=== PATIENT | female | born 1995 | race American Indian/Alaskan Native ===

== ENCOUNTER 2017-01-05 11:55 | Outpatient (CLI) | payer MEDICAID ==
[2017-01-05] MEDS ORDERED: LACTATED RINGERS 500 ML IV ONE (12:07)
[2017-01-05 12:18] VITALS: BP 109/59
[2017-01-05 12:33] LABS: Urine Drugs of Abuse Note Disclamer
--- NOTE | 2017-01-05 12:35 | Event Note ---
Date: 01/05/17 patient arrived to triage with c/o SROM and vaginal bleeding @ approx 11am today. Hx term vaginal delivery in 2011 without complications. She initially stated that she had no care and thought she was due in February because she first "felt " in June. After a series or questions, She reports having some care with Dr. Suzanne English and an u/s that gave her a due date of 02/28/17. She also reports having a mirena IUD that is still in place. No active leaking at this time, nitrazine equivocal, SVE with IBOW and no bleeding noted. wet prep collected. complete OB u/s in progress.
[2017-01-05 12:46] LABS: Bacteria,Urine 1+ /HPF (Negative); Bilirubin,Urine NEG (Negative); Blood,Urine MOD (Negative); Ketones,Urine 20 mg/dL (Negative); Leukocyte Esterase,Urine MOD (Negative); Mucus,Urine FEW /HPF; Nitrite,Urine NEG (Negative); Urobilinogen,Urine < 2.0 mg/dL (<2.0)
[2017-01-05] MEDS ORDERED: FLAGYL PO ONE (13:02)
--- NOTE | 2017-01-05 13:05 | Event Note ---
Date: 01/05/17 u/s JENNA 11cms, u/s gestational age 32+1 correlates with u/s from Dr. English's office. Wet prep + trich and BV. Will treat BV and Trich in house today. Dr. Clarke consulted and plan decided for d/c home and f/u with Dr. English on Saturday.
--- NOTE | 2017-01-05 14:22 | Ultrasound Report ---
FINAL REPORT EXAM: US OB \T\gt; = 14 WEEKS FETUS HISTORY: NO CARE TECHNIQUE: Ultrasound evaluation of the gravid uterus PRIORS: None. FINDINGS: There is a single viable intrauterine with documented cardiac activity. Multiple ultrasound measurements are made to determine a composite gestational age. There is no evidence of placenta previa or abruption. The maternal cervix is obscured. The quantity of visualized amniotic fluid appears grossly normal. No sonographic abnormality in the visualized portion of the anatomy. Heart rate: 166 beats per minute position: Cephalic Placental position: Left lateral, grade 1 Amniotic fluid index: 11.5cm Ultrasound estimated gestational age: 32 weeks 0 days Ultrasound estimated delivery date: 03/02/2017 IMPRESSION: Single viable intrauterine with the above parameters
== END 2017-01-05 14:40 | disposition home or self-care (01) ==
LOC: TRG 11:55
PROVIDERS: ATTEND Obstetrics & Gynecology
DX: O47.03 False labor before 37 completed weeks of gestation, third trimester (principal); Z3A.32 32 weeks gestation of pregnancy
CPT/HCPCS: 59025; 76805; 80307; 81001; 87210; J7120

== ENCOUNTER 2017-01-12 14:36 | Inpatient (IN) | payer MEDICAID ==
[2017-01-12] MEDS: PITOCin/NS 20 UNIT/1000ML DRIP 20 UNITS/1,000 ML BAG IV SCH ×2 (14:36→17:27)
--- NOTE | 2017-01-12 14:57 | Procedure Note ---
OB Delivery Note - Delivery Date of Delivery: 01/12/17 Surgeon: YESICA NGUYEN Estimated blood loss: 300cc - Vaginal Delivery presentation: vertex Delivery position: OA Intrapartum events: no care, precipitous labor- <3hr Delivery induction: none Delivery monitor: none Route of delivery: Delivery placenta: spontaneous Delivery cord: 3 umbilical vessels Episiotomy: none Delivery laceration: none Anesthesia: none Delivery comments: Precipitous delivery of term infant over intact perineum - A at 1 minute: 8 at 5 minutes: 9 Gender: Male (Del @ 14:26, weight is 5#10 or 2268 g)
--- NOTE | 2017-01-12 15:00 | History and Physical Report ---
History of Present Illness Date of examination: 01/12/17 Date of admission: 01/12/17 14:36 Chief complaint: precipitous delivery History of present illness: 21-year-old at unsure gestational age arrived in the hospital and subsequently delivered precipitously. Infant and mother are in stable condition at this time. Patient claims to have had no care but review of records shows a documentation by Dr. Clarke on 01/05/17 noted below: "patient arrived to triage with c/o SROM and vaginal bleeding @ approx 11am today. Hx term vaginal delivery in 2011 without complications. She initially stated that she had no care and thought she was due in February because she first "felt " in June. After a series or questions, She reports having some care with Dr. Suzanne English and an u/s that gave her a due date of 02/28/17. She also reports having a mirena IUD that is still in place. No active leaking at this time, nitrazine equivocal, SVE with IBOW and no bleeding noted. wet prep collected. complete OB u/s in progress" Ultrasound obtained 01/05/2017 gives an PORTER of 02/25/2017 and estimated gestational age of 32 weeks Based on an PORTER of 02/28/2017 her GA is 33+2 wks Past History Past Medical History: no pertinent history Past Surgical History: no surgical history [employer] History: denies: chlamydia, gonorrhea, hepatitis B, hepatitis C, herpes, HIV , syphilis, trichomonas Social history: single, full code. denies: smoking, alcohol abuse, prescription drug abuse, IV drug use - Obstetrical History Expected Date of Delivery: 02/28/17 Actual Gestation: 33 Week(s) 2 Day(s) : 2 Para: 2 Medications and Allergies Allergies Allergy/AdvReac Type Severity Reaction Status Date / Time No Known Allergies Allergy Unverified 01/05/17 12:07 Review of Systems Constitutional: no fever, no chills, no sweats Cardiovascular: no chest pain, no orthopnea, no syncope, no lightheadedness, no shortness of breath, no dyspnea on exertion Respiratory: no shortness of breath, no dyspnea on exertion Gastrointestinal: abdominal pain, no nausea, no vomiting Genitourinary: vaginal bleeding, contractions - Physical Exam Abdomen: Positive: normal appearance, soft. Negative: distention, tenderness, guarding, rigidity Genitourinary (Female): Positive: normal external genitalia, other (No laceration) Uterus: Negative: tender Results All other labs normal. Assessment and Plan PPD# 0 s/p PPT delivery at ?33 wks -No PNC this P: -Admit -Obtain labs -Routine PP care -Anticipate D/C in 24-48 hrs - Patient Problems (1) Precipitous delivery Current Visit: Yes Status: Acute (2) 33 weeks gestation of Current Visit: Yes Status: Acute (3) No care in current Current Visit: No Status: Acute Qualifiers: Trimester: T
[2017-01-12] MEDS ORDERED: PHENERGAN PO PRN (15:09)
[2017-01-12] MEDS ORDERED: LANSINOH TP PRN (15:09)
[2017-01-12] MEDS ORDERED: TUCKS PAD TP PRN (15:09)
[2017-01-12] MEDS ORDERED: ZOFRAN IV PRN (15:09)
[2017-01-12] MEDS ORDERED: TYLENOL PO PRN (15:09)
[2017-01-12] MEDS ORDERED: CYTOTEC PR ONE ×2 (15:09→16:00)
[2017-01-12] MEDS ORDERED: BENADRYL PO PRN (15:09)
[2017-01-12] MEDS ORDERED: NORCO 5/325 PO PRN (15:09)
[2017-01-12] MEDS ORDERED: ANUCORT-HC PR PRN (15:09)
[2017-01-12] MEDS ORDERED: MILK OF MAGNESIA PO PRN (15:09)
[2017-01-12] MEDS ORDERED: PHENERGAN PR PRN (15:09)
[2017-01-12] MEDS ORDERED: DERMOPLAST TP PRN (15:09)
[2017-01-12] MEDS ORDERED: DULCOLAX PR PRN (15:09)
[2017-01-12] MEDS ORDERED: METHERGINE IM PRN (15:09)
[2017-01-12 15:55] LABS: Basophils % (Auto) 0.1 % (0.0-1.8); Eosinophils % (Auto) 0.2 % (0.0-4.3); Hematocrit 30.1 % (30.3-42.9); Hemoglobin 9.4 gm/dl (10.1-14.3); Mean Corpuscular HGB Conc 31 % (30-34); Mean Corpuscular Volume 71 fl (79-97); Platelet Count 249 K/mm3 (140-440); Red Blood Count 4.23 M/mm3 (3.65-5.03); Red Cell Distribution Width 19.2 % (13.2-15.2); White Blood Count 11.1 K/mm3 (4.5-11.0)
[2017-01-12 15:57] LABS: Mean Corpuscular Hemoglobin 22 pg (28-32)
[2017-01-12] MEDS ORDERED: SODIUM CHLORIDE FLUSH SYRINGE 10 ML IV NR (16:00)
[2017-01-12] MEDS ORDERED: SENOKOT S PO SCH (16:00)
[2017-01-12 16:33] LABS: HIV-1 Antigen p24 Non React (Non React); HIVR-1/2 Ab Non React (Non React)
[2017-01-12 18:05] LABS: Urine Drugs of Abuse Note Disclamer
[2017-01-12] MEDS: MOTRIN PO SCH (18:33)
[2017-01-13] MEDS ORDERED: BOOSTRIX IM ONE (06:00)
[2017-01-13] MEDS ORDERED: M-M-R II VACCINE SUB-Q ONE (06:00)
[2017-01-13 06:38] LABS: Hematocrit 25.2 % (30.3-42.9); Hemoglobin 7.9 gm/dl (10.1-14.3)
--- NOTE | 2017-01-13 08:55 | Progress Note ---
Assessment and Plan PPD# 1 s/p PPT delivery at ?33 wks -No PNC this - to be given up for adoption P: -Continue routine care -Discharge when necessary - Patient Problems (1) Precipitous delivery Current Visit: Yes Status: Acute (2) 33 weeks gestation of Current Visit: Yes Status: Acute (3) No care in current Current Visit: No Status: Acute Qualifiers: Trimester: T Subjective - Subjective Date of service: 01/13/17 Principal diagnosis: PPD# 1 Interval history: Patient seen and examined, stable doing well. No issues, adequate bladder function ambulating without difficulty Patient reports: appetite normal, voiding normally, pain well controlled, flatus , ambulating normally, no dizzy ambulation, no nauseated : doing well Objective - Vital Signs Latest vital signs: Vital Signs Temp Pulse Pulse Resp BP BP 01/13/17 00:50 98.3 F 64 20 120/60 01/12/17 20:20 98.9 F 89 20 144/79 01/12/17 17:45 98.2 F 72 16 112/80 01/12/17 16:37 73 129/78 01/12/17 16:22 68 127/74 01/12/17 16:07 85 137/85 01/12/17 15:52 77 140/80 01/12/17 15:37 68 130/77 01/12/17 15:31 72 125/59 01/12/17 15:07 82 128/71 01/12/17 14:50 97.4 F L 20 Intake and Output 01/12/17 01/13/17 01/13/17 22:59 06:59 14:59 Intake Total 1240 Output Total 400 Balance 840 Intake: IV 1000 PITOCin/NS 20 UNIT/1000ML 1000 DRIP 20 units In 1,000 ml @ 250 mls/hr IV DIRECT VICENTE Rx#:[id number] Oral 240 Output: Urine 400 Void 400 Other: Total, Intake Amount 240 Total, Output Amount 400 - Exam Abdomen: Present: normal appearance, soft. Absent: distention, tenderness, guarding, rigidity Uterus: Present: firm, fundal height below umbilicus Extremities: Present: normal - Labs Labs: Abnormal lab results 01/12/17 01/13/17 Range/Units 15:41 06:14 WBC 11.1 H (4.5-11.0) K/mm3 Hgb 9.4 L 7.9 L (10.1-14.3) gm/dl Hct 30.1 L 25.2 L (30.3-42.9) % MCV 71 L (79-97) fl MCH 22 L (28-32) pg RDW 19.2 H (13.2-15.2) % Lymph % (Auto) 9.7 L (13.4-35.0) % Lymph # 1.1 L (1.2-5.4) K/mm3 Seg Neutrophils % 83.4 H (40.0-70.0) % Seg Neutrophils # 9.2 H (1.8-7.7) K/mm3
--- NOTE | 2017-01-13 08:56 | Discharge Summary ---
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 Hospitalization Reason for admission: active labor, IUP - Delivery: Episiotomy: none Laceration: none Other procedures: none complications: none Discharge diagnosis: delivery Talent baby: male Hospital course: Uncomplicated hospital course, she is discharged in stable condition Condition at discharge: Good Disposition: DISCHARGED TO HOME OR SELFCARE - Discharge Diagnoses (1) Precipitous delivery Status: Acute (2) 33 weeks gestation of Status: Acute (3) No care in current Status: Acute Qualifiers: Trimester: T Plan - Discharge Medications Prescriptions: HYDROcodone/APAP 5-325 [[place] 5/325] 1 each PO Q6HR PRN #10 tablet PRN Reason: Pain Ibuprofen [Motrin 600 MG tab] 600 mg PO Q8H PRN #30 tablet PRN Reason: Pain Multivitamin with Iron [Multivitamins with Iron] 1 each PO DAILY #30 tablet - Provider Discharge Summary Activity: no sex for 6 weeks, no heavy lifting 4 weeks, no strenuous exercise Diet: routine Additional instructions: [] Smoking cessation referral if applicable(refer to patient education folder for contact #) [] Refer to [facility]'s [facility] Booklet Call your doctor immediately for: * Fever > 100.5 * Heavy vaginal bleeding ( >1 pad per hour) * Severe persistent headache * Shortness of breath * Reddened, hot, painful area to leg or breast * Drainage or odor from incision. * Keep incision clean and dry at all times and follow doctor's instructions regarding bathing/showering - Follow up plan Follow up: PRIMARY CARE, [Primary Care Provider] - 6 Weeks
[2017-01-13] MEDS ORDERED: DEPO-PROVERA (CONTRACEPTION) IM NR (09:00)
[2017-01-13] MEDS: PRENATAL VITAMIN PO SCH (09:51)
[2017-01-13] MEDS: FEOSOL PO SCH ×2 (09:51→22:16)
[2017-01-13] MEDS: COLACE PO SCH ×2 (09:51→22:16)
[2017-01-14] MEDS: MOTRIN PO SCH ×2 (00:34→06:02)
[2017-01-14] MEDS: PRENATAL VITAMIN PO SCH (09:40)
[2017-01-14] MEDS: COLACE PO SCH (09:40)
[2017-01-14] MEDS: FEOSOL PO SCH (09:40)
[2017-01-14 12:18] VITALS: BP 125/71
== END 2017-01-14 14:40 | disposition home or self-care (01) | DRG 775 ==
LOC: LD 14:36 → OB 17:45
PROVIDERS: ADMIT Obstetrics & Gynecology Gynecology; ATTEND Obstetrics & Gynecology Gynecology
PROC: 10E0XZZ Delivery of Products of Conception, External Approach (ICD-10-PCS; principal; 2017-01-12)
DX: O62.3 Precipitate labor (principal); Z3A.33 33 weeks gestation of pregnancy; Z37.0 Single live birth; O09.33 Supervision of pregnancy with insufficient antenatal care, third trimester; O60.14X0 Preterm labor third trimester with preterm delivery third trimester, not applicable or unspecified
CPT/HCPCS: 36415; 80307; 85014; 85018; 85025; 86592; 86706; 86762; 86803; 86850; 86900; 86901; 87806; J2590